=== PATIENT | female | born 1990 | race Caucasian/White ===

== ENCOUNTER → 2021-10-03 11:49 | Outpatient (BNVA) | payer OTHER, SELFPAY | PROVIDERS: PCP Obstetrics & Gynecology; Visit Provider Registered Nurse Neonatal Intensive Care | DX: M25.572 Pain in left ankle and joints of left foot (principal) | CPT/HCPCS: 73610 ==

== ENCOUNTER → 2021-10-12 12:11 | Outpatient (BNVA) | payer OTHER, SELFPAY | PROVIDERS: Visit Provider Obstetrics & Gynecology | DX: Z31.69 Encounter for other general counseling and advice on procreation (principal); Z12.4 Encounter for screening for malignant neoplasm of cervix | CPT/HCPCS: 80053; 82652; 84443; 85025; 86592; 86762; 86787; 86803; 86850; 86900; 87340; 87806; 88175 ==

== ENCOUNTER 2022-05-26 08:23 | Outpatient (CLI) | payer BC, SELFPAY ==
[2022-05-26 09:51] LABS: Estradiol 40.2 pg/mL; Follicle Stimulating Hormone 6.9 mIU/mL; Luteinizing Hormone 8.2 mIU/mL (0.5-41.7); Progesterone 0.206 ng/mL; Thyroid Stimulating Hormone 1.26 uIU/mL (0.27-4.20)
== END 2022-05-26 08:24 | disposition home or self-care (01) ==
PROVIDERS: Visit Provider Obstetrics & Gynecology
DX: Z31.7 Encounter for procreative management and counseling for gestational carrier (principal)
CPT/HCPCS: 36415; 76830; 82670; 83001; 83002; 84144; 84443; 84702

== ENCOUNTER 2022-07-04 08:39 | Outpatient (CLI) | payer BC, SELFPAY ==
[2022-07-04 10:54] LABS: Follicle Stimulating Hormone 7.2 mIU/mL; Luteinizing Hormone 7.1 mIU/mL (0.5-41.7); Progesterone 0.092 ng/mL; Thyroid Stimulating Hormone 1.37 uIU/mL (0.27-4.20)
[2022-07-04 11:42] LABS: Estradiol 60.8 pg/mL
== END 2022-07-04 08:40 | disposition home or self-care (01) ==
LOC: LAB 09:16
PROVIDERS: PCP Nurse Practitioner Family; Visit Provider Obstetrics & Gynecology Reproductive Endocrinology
DX: Z31.83 Encounter for assisted reproductive fertility procedure cycle (principal)
CPT/HCPCS: 36415; 82670; 83001; 83002; 84144; 84443; 84702

== ENCOUNTER 2022-07-21 08:01 | Outpatient (CLI) | payer BC, SELFPAY ==
[2022-07-21 09:33] LABS: Estradiol 180.9 pg/mL; Progesterone 27.32 ng/mL
== END 2022-07-21 08:02 | disposition home or self-care (01) ==
LOC: LAB 08:22
PROVIDERS: PCP Nurse Practitioner Family; Visit Provider Obstetrics & Gynecology Reproductive Endocrinology
DX: Z31.49 Encounter for other procreative investigation and testing (principal)
CPT/HCPCS: 36415; 82670; 84144

== ENCOUNTER 2022-07-26 08:20 | Outpatient (CLI) | payer BC, SELFPAY ==
[2022-07-26 09:22] LABS: Progesterone 29.35 ng/mL
== END 2022-07-26 08:21 | disposition home or self-care (01) ==
PROVIDERS: PCP Nurse Practitioner Family; Visit Provider Obstetrics & Gynecology Reproductive Endocrinology
DX: Z32.00 Encounter for pregnancy test, result unknown (principal)
CPT/HCPCS: 36415; 84144; 84702

== ENCOUNTER 2022-07-28 08:57 | Outpatient (CLI) | payer BC, SELFPAY ==
[2022-07-28 10:20] LABS: Estradiol 255.1 pg/mL; Thyroid Stimulating Hormone 0.98 uIU/mL (0.27-4.20)
== END 2022-07-28 08:58 | disposition home or self-care (01) ==
PROVIDERS: PCP Nurse Practitioner Family; Visit Provider Obstetrics & Gynecology Reproductive Endocrinology
DX: Z32.01 Encounter for pregnancy test, result positive (principal)
CPT/HCPCS: 36415; 82670; 84144; 84443; 84702

== ENCOUNTER 2022-08-08 09:17 | Outpatient (CLI) | payer BC, SELFPAY ==
--- NOTE | 2022-08-08 09:58 | US_ITS ---
WS: [id number] EARLY OBSTETRICAL ULTRASOUND (<14 WEEKS). HISTORY: W/HX OF INFERTILITY COMPARISON: None available. Single intrauterine gestational sac is identified. Cardiac activity at 116 BPM. [place]-rump length taylor sures 0.5 cm which corresponds to a gestation of 6w1d. Normal-appearing yolk sac and amnion demonstra rosalie. No subchorionic hemorrhage. No free fluid. Normal size ovaries with no mass. US/US OB <=14 wk fetus w transvag IMPRESSION: 1. Single intrauterine gestation of 6 weeks 1 day with an EDC of 04/02/2023. 2. Normal cardiac activity for age.
[2022-08-08 10:26] LABS: Estradiol 194.6 pg/mL
[2022-08-08 11:35] LABS: Progesterone > 60 ng/mL
== END 2022-08-08 09:18 | disposition home or self-care (01) ==
PROVIDERS: PCP Nurse Practitioner Family; Visit Provider Obstetrics & Gynecology Reproductive Endocrinology
DX: O09.00 Supervision of pregnancy with history of infertility, unspecified trimester (principal); Z3A.01 Less than 8 weeks gestation of pregnancy
CPT/HCPCS: 36415; 76801; 76817; 82670; 84144; 84702

== ENCOUNTER 2022-08-14 10:46 | Outpatient (CLI) | payer BC, SELFPAY ==
--- NOTE | 2022-08-14 11:12 | US_ITS ---
WS: [id number] EARLY OBSTETRICAL ULTRASOUND (<14 WEEKS). HISTORY: W/HX OF INFERTILITY COMPARISON: None available. Single intrauterine gestational sac is identified. Cardiac activity at 131 BPM. [place]-rump length taylor sures 0.9 cm which corresponds to a gestation of 6w6d. Normal-appearing yolk sac and amnion demonstra rosalie. No subchorionic hemorrhage. No free fluid. Normal size ovaries with no mass. US/US OB lmt with transvaginal IMPRESSION: 1. Single intrauterine gestation of 6 weeks 6 days with an EDC of 04/03/2023. 2. Normal heart rate.
[2022-08-14 14:17] LABS: Estradiol 343.3 pg/mL; Progesterone 9.33 ng/mL
== END 2022-08-14 10:47 | disposition home or self-care (01) ==
PROVIDERS: PCP Nurse Practitioner Family; Visit Provider Obstetrics & Gynecology Reproductive Endocrinology
DX: O09.00 Supervision of pregnancy with history of infertility, unspecified trimester (principal); Z3A.00 Weeks of gestation of pregnancy not specified
CPT/HCPCS: 36415; 76815; 76817; 82670; 84144; 84702

== ENCOUNTER 2023-01-11 11:12 | Outpatient (CLI) | payer BC, SELFPAY ==
--- NOTE | 2023-01-11 11:23 | XR_ITS ---
WS: [email or web address] EXAMINATION: XR foot RT 2V [id number] REASON FOR EXAM: R TOE PAIN COMPARISON: None available. ORDER DATE: 01/11/2023 11:30 AM TECHNIQUE: 3 views of the right foot were obtained. X-RAY FINDINGS: There are no fractures or dislocations. No focal abnormal soft tissue swelling. Joint spaces are pres erved. XR/XR foot RT 2V [id number] IMPRESSION: No fractures or dislocations of the right foot.
== END 2023-01-11 11:13 | disposition home or self-care (01) ==
PROVIDERS: PCP Nurse Practitioner Family; Visit Provider Nurse Practitioner Family
DX: M79.674 Pain in right toe(s) (principal)
CPT/HCPCS: 73620

== ENCOUNTER 2023-03-09 12:43 | Outpatient (CLI) | payer BC, SELFPAY ==
--- NOTE | 2023-03-09 12:55 | US_ITS ---
WS: [id number] BIOPHYSICAL PROFILE AND LIMITED OB. HISTORY: ANEMIA IN 3RD TRIMESTER/HIGH RISK COMPARISON: 08/14/2022 Presentation: Vertex Cervix: Closed and normal length. Placenta: Posterior and fundal. Grade: 1 HEART: FHR of 138BPM. Biophysical profile: Parameters are as follows: Breathin Movement: 2 Tone: 2 Fluid volume: 2 Amniotic fluid index: 11.2 cm. IMPRESSION: 1. Biophysical profile score: 8/8. 2. Normal amniotic fluid.
== END 2023-03-09 12:44 | disposition home or self-care (01) ==
PROVIDERS: PCP Nurse Practitioner Family; Visit Provider Family Medicine
DX: O99.013 Anemia complicating pregnancy, third trimester (principal); D64.9 Anemia, unspecified; Z3A.00 Weeks of gestation of pregnancy not specified
CPT/HCPCS: 76819

== ENCOUNTER 2023-03-16 12:14 | Outpatient (CLI) | payer BC, SELFPAY ==
--- NOTE | 2023-03-16 12:33 | US_ITS ---
WS: [id number] BIOPHYSICAL PROFILE AND LIMITED OB. HISTORY: ADEMIA IN , THIRD TRIMESTER COMPARISON: 08/08/2022,, 03/09/2023 Presentation: Vertex. Cervix: Obscured by the head. Placenta: Posterior and fundal. Grade: 1 HEART: FHR of 138BPM. measurements: BPD = 8.8 cm = 35w4d; 25% HC = 31.9 cm = 35w6d; 7% AC = 32.3 cm = 36w2d; 41% FL = 7.0 cm = 36w0d; 24% ALTAF: 9.5 centimeters. EFW: 2839g; 47% AGA by ultrasound: 36w0d CHAD by ultrasound: 04/13/2023 Measurements are internally concordant. Biophysical profile: Parameters are as follows: Breathin Movement: 2 Tone: 2 Fluid volume: 2 IMPRESSION: 1. Biophysical profile score: 8/8. 2. Single intrauterine gestation of 36w0d with an EDC of 04/13/2023. Fetus is measuring approximately 11 days smaller when compared to the first trimester ultrasound. Appropriate growth. 3. No growth asymmetry. 4. Estimated weight at the 47%.
== END 2023-03-16 12:15 | disposition home or self-care (01) ==
PROVIDERS: PCP Nurse Practitioner Family; Visit Provider Family Medicine
DX: O99.013 Anemia complicating pregnancy, third trimester (principal); O09.893 Supervision of other high risk pregnancies, third trimester; Z3A.00 Weeks of gestation of pregnancy not specified
CPT/HCPCS: 76815; 76819

== ENCOUNTER 2023-03-16 13:09 | Outpatient (CLI) | payer BC, SELFPAY ==
[2023-03-16 13:09] VITALS: BMI 24.3
[2023-03-16 13:30] VITALS: PULSE 79; RESP 17
[2023-03-16 13:32] VITALS: BP 118/74; PULSE 75
[2023-03-16 13:44] VITALS: RESP 18
[2023-03-16 13:48] VITALS: BP 120/71; PULSE 79
== END 2023-03-16 13:59 | disposition home or self-care (01) ==
LOC: OPOB 13:09 → OBGYN 13:10
PROVIDERS: PCP Nurse Practitioner Family; Visit Provider Family Medicine
DX: O26.899 Other specified pregnancy related conditions, unspecified trimester (principal); Z3A.00 Weeks of gestation of pregnancy not specified
CPT/HCPCS: 59025; 99211

== ENCOUNTER 2023-03-23 12:29 | Outpatient (CLI) | payer BC, SELFPAY ==
--- NOTE | 2023-03-23 13:10 | US_ITS ---
WS: [email or web address] BIOPHYSICAL PROFILE AMNIOTIC FLUID HISTORY: wellbeing. COMPARISON: 03/16/2023 position: Vertex. Cardiac activity: 167 bpm. Cervix: closed. Placenta: Posterior and fundal. Placenta does appear to have age since the prior exam. Only a small p ortion of the placenta has been included on each of these exams. Placenta grade: 2 Parameters are as follows: Breathin Movement: 2 Tone: 2 Fluid volume: 2 Amniotic Fluid Index: 8.6 cm; single deep vertical pocket 3.4 cm. IMPRESSION: 1. Biophysical profile score: 8/8. 2. Normal amniotic fluid. 3. Only a small portion of the placenta is identified and appears to be have aged since the most rece nt exam. Grade 2 placenta.
== END 2023-03-23 12:30 | disposition home or self-care (01) ==
LOC: RAD 12:41
PROVIDERS: PCP Nurse Practitioner Family; Visit Provider Family Medicine
DX: O99.013 Anemia complicating pregnancy, third trimester (principal); D64.9 Anemia, unspecified; O09.893 Supervision of other high risk pregnancies, third trimester; Z3A.00 Weeks of gestation of pregnancy not specified
CPT/HCPCS: 76819

== ENCOUNTER 2023-03-30 08:09 | Inpatient (IN) | payer BC, SELFPAY ==
[2023-03-30] VITALS (36 sets, daily range): BP systolic 109–132; BP diastolic 57–96; PULSE 63–115; RESP 15–20; TEMP 36.6–36.9; O2SAT 98; BMI 23.9
[2023-03-30 08:41] LABS: Basophils % 0.5 %; Eosinophils # 0.1 10^3/uL (0.0-0.8); Lymphocytes # 2.3 10^3/uL (0.8-4.8); Mean Corpuscular HGB Conc 30.9 g/dL (30-55); Mean Corpuscular Hemoglobin 24.6 pg (27-33); Mean Corpuscular Volume 79.5 fl (85-98); Mean Platelet Volume 12.3 fL (7.4-10.4); Monocytes # 0.6 10^3/uL (0.2-0.9); Neutrophils # 5.78 10^3/uL (1.8-7.7); Neutrophils % 65.2 %; Nucleated Red Blood Cells % 0 %; Platelet Count 222 10^3/cmm (157-399); Red Blood Count 4.15 10^6/uL (3.85-5.65); Red Cell Distribution Width 14.5 % (12.1-15.1); White Blood Count 8.87 10^3/uL (3.29-11.43)
--- NOTE | 2023-03-30 09:00 | PM.OBGYHP ---
Providers/Chief Complaint Admitting Physician: Scarlett May DO Primary PAPER FINAL INSPECTOR: Scarlett May DO Primary Care Provider: Juanis De Santiago Chief Complaint: Elective IOL HPI PAPER FINAL INSPECTOR History of Present Illness Catherine Medeiros is a 32 year old female at 39w0d by LMP c/w early US with PMHx anemia, migraines, allergies and past hx IUGR, PPROM presenting for elective induction of labor for a surrogate initiated with IVF. course unremarkable- she has had evaluation with MFM for genetic counseling with parents. Denies regular cramping/contractions, LOF, vaginal bleeding prior to admission. Good movement. care was good and starting in the first trimester. On Pepcid to twice daily for reflux. labs significant for rubella non-immune. Level 2 anatomy scan with MFM within normal limits. Present Details : 6 Para: 4 Labs Blood type OB HPI: O (+) positive Rubella: Non-Immune RPR: Negative GBS: Negative HBsAG: Negative Other Lab Information: HIV negative HCV ab NR GC/chlam negative Initial H/H 12.9/38.4 UCx negative 1hr GTT passed- 130 3rd trimester H/H 10.7/32.1 Review of Systems Const: Denies: fever(s) or chills Card: Denies: chest pain Resp: Denies: dyspnea GI: Denies: abdominal pain Medications/Allergies Home Medications Medication Instructions Recorded Confirmed Last Taken Type ferrous sulfate 15 mg iron (75 1 mg PO DAILY 03/30/23 03/30/23 03/27/23 History mg)/mL oral drops [id number] 1 mg 1 tab PO DAILY 03/30/23 03/30/23 03/29/23 History tablet 1 Allergies Allergy/AdvReac Type Severity Reaction Status Date / Time pumpkin Allergy ALGY-Hives Verified 03/30/23 08:53 PFSH PAPER FINAL INSPECTOR PFSH: Medical History (Updated 03/30/23 @ 13:39 by Scarlett May DO) No pertinent past medical history neghx: dm, htn, thyroid, dvt/pe PCP: Dr. May Surgical History (Updated 10/19/21 @ 10:39 by Ruba Zamora MD) History of surgery on lower extremity fatty tissue removed from left leg History of wisdom tooth extraction Family History (Updated 10/19/21 @ 10:26 by Kelsie Bob LPN) Mother Cancer Ovarian cancer Father Hyperlipidemia Denies family history of Cervical cancer Prostate cancer Diabetes Heart disease Breast cancer Hypertension Uterine cancer Thyroid disease Stroke Other Female Reproductive History: Hx Age of Menarche: 15 History History History 6 Term 4 0 Miscarriages/Ectopic 1 Living Children 4 Past Pregnancies Del. Date GA/Weeks Outcome Route Wt Inf Gender Labor Lgth Comp. Anesthesia Location 06/22/12 live - full term Vaginal Female 3 1/2 hours Third degree laceration [facility] 12/08/14 live - full term Vaginal Male 2 hours [facility] 07/24/17 live - full term Vaginal Female 3 hours [place] 06/29/20 live - full term Vaginal Female 3 1/2 hours [place] Vitals/I&O/Wt Last Vital Signs Temp 98.1 F 03/30/23 08:11 Pulse 72 03/30/23 08:39 Resp 18 03/30/23 08:30 BP 123/74 03/30/23 08:39 O2 Del Method Room Air 03/30/23 08:31 Weight last 48 hrs Weight 144 lb Physical Exam Const: COMMON NORMALS: no acute distress, healthy appearing and alert Resp: COMMON NORMALS: normal respiratory effort and clear to auscultation bilaterally Cardio: COMMON NORMALS: regular rate, regular rhythm, S1 normal heart sound present, S2 normal heart sound present and No murmurs present (Cardio) : OTHER: gravid with size appropriate for gestational age SVE 2/50/-2 on admission per RN Extremity: NARRATIVE EXTREMITY EXAM: No LE edema Data 03/30/23 08:15 Results Labs OB ([facility]): Obstetrics US Obstetrics US/Biophysical Profile Blood Type O Positive Antibody Screen Negative Hct 33.0 % (36-47) L Hgb 10.20 g/dL (11.27-16.99) L Rho(D) Type Positive Plt Count 222 10^3/cmm (157-399) Hep Bs Antigen Non-reactive (Nonreactive) Hepatitis C Antibody Non-reactive (Nonreactive) Rubella IgG Antibody 32.8 IU/mL (0.0-10.0) H RPR Nonreactive (Nonreactive) TSH 0.98 uIU/mL (0.27-4.20) VZV IgG Antibody 277.70 index Progesterone 9.33 ng/mL FSH 7.2 mIU/mL A&P Assessment and plan (1) Elective induction of labor planned: (2) Term : (3) Encounter for procreative management and counseling for person acting as gestational surrogate: (4) Anemia complicating : Plan 32yo admitted for elective induction of labor with surrogate . Bio parents present in town. Routine CBC. On low dose pitocin for induction. Continuous EFM on pitocin. Fentanyl protocol, may have epidural if desired although patient indicates she does not want an epidural. Attestations Medical Necessity Statement*: Catherine Medeiros's hospital stay will require greater than 2 midnights for routine labor and delivery and care. Coding Level of Care Code Acute Code for Chg Fwd Diagnoses Elective induction of labor planned Term Z34.90 Encounter for procreative management and counseling for person acting as gestational surrogate Z31.7 Anemia complicating O99.019
[2023-03-30] MEDS: dextrose 5%-lactated ringers 1,000 ML 125 ML IV (09:04)
[2023-03-30] MEDS: oxytocin 30 UNIT/500 ML BAG IV (09:04)
[2023-03-30] MEDS: ondansetron 2 mg/ML SDV 2 mL 4 MG IVP (14:33)
[2023-03-30] MEDS: fentaNYL 50 mcg/mL INJ 2mL IVP (15:46)
--- NOTE | 2023-03-30 16:09 | P.PCNOB_ITS ---
Delivery Note: Date of delivery: March 30, 2023 Pre-delivery diagnoses: Term Surrogate Post-delivery diagnoses: Term delivery of female Procedure: Spontaneous Vaginal Delivery Delivering Physician: Scarlett May DO Estimated blood loss (mL): 200 Pre-Delivery Course: Patient was admitted for induction of labor and started on low-dose Pitocin with initial SVE of 2/50/-2. Progressed appropriately to complete. AROM performed at 1525 with moderate amount of clear fluid. Following patient progressed quickly to complete. Of note patient with apparent small syncopal episode after patient found to be complete but prior to initiating pushing - presumed due to intense pain that resolved after contraction with noted normal vital signs during episode. Following patient easily responsive and alert prior to initiating pushing. Delivery: Patient progressed to complete. Patient placed in lithotomy position. Patient pushed with adequate effort. Head delivered in HUSSEIN position, no nuchal cord was present. Shoulders and rest of body delivered without difficulty with no anesthesia. Body cord noted wrapped around left leg and foot. Mouth and nares bulb suctioned. Cord clamped and cut after approximately 2-minute delay. placed on maternal abdomen. Placenta spontaneously delivered and intact. Pitocin started. Fundus was noted to be firm with massage. The vagina and cervix were inspected and small first-degree laceration at posterior introitus was noted and found to be hemostatic not requiring repair. Noted to have intermittent small trickle bleeding. Tranexamic acid was given and with fundal massage fundus was again noted to be firm. Female born at 1538 on 03/30/2021 with 9/9 weighing 3010g and measuring 19.75 in length Placenta noted to be intact with centrally inserted umbilical cord and three- vessel cord. Complications: Maternal none none History History History 6 Term 5 0 Miscarriages/Ectopic 1 Living Children 5 Past Pregnancies Del. Date GA/Weeks Outcome Route Wt Inf Gender Labor Lgth Comp. Anesth esia Location 06/22/12 live - full term Vaginal Female 3 1/2 ho urs Third degree laceration [facility] 12/08/14 live - full term Vaginal Male 2 hours [facility] 07/24/17 live - full term Vaginal Female 3 hours [place] 06/29/20 live - full term Vaginal Female 3 1/2 hours [place] Coding Level of Care Code Acute Code for Chg Fwd Diagnoses
[2023-03-30] MEDS: ibuprofen 800 mg tablet PO (23:09)
[2023-03-31 04:00] VITALS: BP 115/72; PULSE 76; RESP 14; TEMP 36.7; O2SAT 98
[2023-03-31 04:25] LABS: Hematocrit 26.7 % (36-47); Mean Corpuscular HGB Conc 31.1 g/dL (30-55); Mean Corpuscular Hemoglobin 24.9 pg (27-33); Mean Corpuscular Volume 80.2 fl (85-98); Mean Platelet Volume 11.9 fL (7.4-10.4); Platelet Count 170 10^3/cmm (157-399); Red Blood Count 3.33 10^6/uL (3.85-5.65); Red Cell Distribution Width 14.4 % (12.1-15.1); White Blood Count 11.88 10^3/uL (3.29-11.43)
[2023-03-31] MEDS: prenatal vitamin Capsule 1 CAP PO (08:38)
[2023-03-31] MEDS: ibuprofen 800 mg tablet PO (08:38)
[2023-03-31] MEDS: docusate sodium 100 mg Capsule PO (08:38)
[2023-03-31] MEDS: ferrous sulfate EC 325 mg Tablet PO (08:40)
[2023-03-31 08:51] VITALS: BP 121/70; PULSE 80; RESP 15
--- NOTE | 2023-03-31 08:57 | P.DS_ITS ---
Discharge Providers MANAGER UNIVERSITY Date of Admission: 03/30/23 08:09 Date of Discharge: 03/31/23 Attending Provider at Admission: Scarlett May DO Attending Provider at Discharge: Scarlett May DO Primary Care Provider: Juanis De Santiago Diagnoses at Discharge Discharge Diagnosis (1) Spontaneous vaginal delivery: Status: Acute (2) Anemia: Status: Acute Reason for Visit Reason for Visit: Elective IOL Hospital Course Hospital Course Pre-Delivery Course:?? Patient was admitted for induction of labor and started on low-dose Pitocin with initial SVE of 2/50/-2.? Progressed appropriately to complete.? AROM performed at 1525 with moderate amount of clear fluid.? Following patient progressed quickly to complete.? Of note patient with apparent small syncopal episode after patient found to be complete but prior to initiating pushing - presumed due to intense pain that resolved after contraction with noted normal vital signs during episode.? Following patient easily responsive and alert prior to initiating pushing. Delivery:?? Patient progressed to complete. Patient placed in lithotomy position. Patient pushed with adequate effort.? Head delivered in HUSSEIN position, no nuchal cord was present. Shoulders and rest of body delivered without difficulty with no anesthesia. Body cord noted wrapped around left leg and foot.? Mouth and nares bulb suctioned. Cord clamped and cut after approximately 2-minute delay. placed on maternal abdomen. Placenta spontaneously delivered and intact. Pitocin started. Fundus was noted to be firm with massage. The vagina and cervix were inspected and small first-degree laceration at posterior introitus was noted and found to be hemostatic not requiring repair.? Noted to have intermittent small trickle bleeding.? Tranexamic acid was given and with fundal massage fundus was again noted to be firm. Female born at 1538 on 03/30/2021 with 9/9 weighing 3010g and measuring 19.75 in length Placenta noted to be intact with centrally inserted umbilical cord and three- vessel cord. Complications: Maternal none ? none course: Patient underwent on 03/31/23. course was uncomplicated. Following delivery patient ambulated well, tolerated a normal diet without nausea or vomiting. Pain was well controlled on PO medications, pumping to feed due to surrogate , no leg/calf pain, no calf/leg swelling, normal urination. Vaginal bleeding decreasing and thin lochia. labs significant for Hgb 8.3 from 10.2 on admission. Follow-up plann ed for 2 and 6 weeks . Warning signs for endometritis, pre-eclampsia, DVT/PE, mastitis were reviewed, discussed additional warning signs including increased vaginal bleeding, worsening abdominal pain. Pelvic rest and activity precautions reviewed as well. She is discharged on 03/31/23 in stable condition. Information Peripartum Data: Infant Delivery Method: Vaginal Physical Exam Const: COMMON NORMALS: no acute distress, healthy appearing and alert Resp: COMMON NORMALS: normal respiratory effort and clear to auscultation bilaterally AUSCULTATION: clear to auscultation bilaterally Cardio: COMMON NORMALS: regular rate, regular rhythm, S1 normal heart sound present, S2 normal heart sound present and No murmurs present (Cardio) RATE: regular rate RHYTHM: regular rhythm HEART SOUNDS: S1 normal heart sound present and S2 normal heart sound present : OTHER: fundus firm and below the umbilicus Extremity: NARRATIVE EXTREMITY EXAM: No LE edema Neuro: SENSORIUM/ORIENTATION: Yes alert History History History 6 Term 5 0 Miscarriages/Ectopic 1 Living Children 5 Past Pregnancies Del. Date GA/Weeks Outcome Route Wt Inf Gender Labor Lgth Comp. Anesth esia Location 06/22/12 live - full term Vaginal Female 3 1/2 ho urs Third degree laceration [facility] 12/08/14 live - full term Vaginal Male 2 hours [facility] 07/24/17 live - full term Vaginal Female 3 hours [place] 06/29/20 live - full term Vaginal Female 3 1/2 hours [place] Discharge Data Studies Completed and Pending Laboratory Results WBC 11.88 10^3/uL (3.29-11.43) H 03/31/23 04:05 RBC 3.33 10^6/uL (3.85-5.65) L 03/31/23 04:05 Hgb 8.30 g/dL (11.27-16.99) L 03/31/23 04:05 Hct 26.7 % (36-47) L 03/31/23 04:05 MCV 80.2 fl (85-98) L 03/31/23 04:05 MCH 24.9 pg (27-33) L 03/31/23 04:05 MCHC 31.1 g/dL (30-55) 03/31/23 04:05 RDW 14.4 % (12.1-15.1) 03/31/23 04:05 Plt Count 170 10^3/cmm (157-399) 03/31/23 04:05 MPV 11.9 fL (7.4-10.4) H 03/31/23 04:05 Neut % (Auto) 65.2 % 03/30/23 08:15 Lymph % (Auto) 26.0 % 03/30/23 08:15 Green % (Auto) 7.0 % 03/30/23 08:15 Eos % (Auto) 1.0 % 03/30/23 08:15 Baso % (Auto) 0.5 % 03/30/23 08:15 Neut # (Auto) 5.78 10^3/uL (1.8-7.7) 03/30/23 08:15 Lymph # (Auto) 2.3 10^3/uL (0.8-4.8) 03/30/23 08:15 Green # (Auto) 0.6 10^3/uL (0.2-0.9) 03/30/23 08:15 Eos # (Auto) 0.1 10^3/uL (0.0-0.8) 03/30/23 08:15 Baso # (Auto) 0.0 10^3/uL (0.0-0.1) 03/30/23 08:15 Nucleated RBC % (auto) 0 % 03/30/23 08:15 Nucleated RBCs # 0.0 /100WBC 03/30/23 08:15 Blood Type O Positive 03/30/23 08:15 Rho(D) Type Positive 03/30/23 08:15 Antibody Screen Negative 03/30/23 08:15 Vitals Last Vital Signs Temp 98.1 F 03/31/23 04:00 Pulse 80 03/31/23 08:51 Resp 15 03/31/23 08:51 BP 121/70 03/31/23 08:51 Pulse Ox 98 03/31/23 04:00 O2 Del Method Room Air 03/31/23 04:00 Results Labs OB ([facility]): Obstetrics US 08/14/22 Obstetrics US/Biophysical Profile Blood Type O Positive 03/30/23 Antibody Screen Negative 03/30/23 Hct 26.7 % (36-47) L 03/31/23 Hgb 8.30 g/dL (11.27-16.99) L 03/31/23 Rho(D) Type Positive 03/30/23 Plt Count 170 10^3/cmm (157-399) 03/31/23 Hep Bs Antigen Non-reactive (Nonreactive) 10/12/21 Hepatitis C Antibody Non-reactive (Nonreactive) 10/12/21 Rubella IgG Antibody 32.8 IU/mL (0.0-10.0) H 10/12/21 RPR Nonreactive (Nonreactive) 10/12/21 TSH 0.98 uIU/mL (0.27-4.20) 07/28/22 VZV IgG Antibody 277.70 index 10/12/21 Progesterone 9.33 ng/mL 08/14/22 FSH 7.2 mIU/mL 07/04/22 Total Estradiol 343.3 pg/mL 08/14/22 Discharge Plan Discharge Patient Disposition: Home Condition: Stable Prescriptions: New ibuprofen 800 mg Tablet 800 mg PO TID Qty: 90 0RF ferrous sulfate 325 mg (65 mg iron) Tablet,Delayed Release (Dr/Ec) 325 mg PO DAILY Qty: 90 0RF Continued 1 mg Tablet 1 tab PO DAILY Discontinued ferrous sulfate 15 mg iron (75 mg)/mL Drops 1 mg PO DAILY Discharge Orders: Discharge Order (Routine); Ordered 03/31/23 Ordered By: Scarlett May Discharge Diet: Regular Discharge Activity: Increase activity as tolerated Patient Instructions: Opioid Safety Activity Restrictions/Additional Instructions: Pevic rest for 6 weeks. Follow-up with Dr. May at 2 and 6 weeks . Discharge Attestations MANAGER UNIVERSITY Time Spent in Discharge Care*: less than 30 min Coding Level of Care Code Acute Code for Chg Fwd Diagnoses Spontaneous vaginal delivery O80 Anemia D64.9
[2023-03-31 10:55] VITALS: BP 118/75; PULSE 74; RESP 16; TEMP 36.9
[2023-03-31 11:51] VITALS: BP 118/75; PULSE 74; RESP 16; TEMP 36.9
== END 2023-03-31 11:52 | disposition home or self-care (01) | DRG 807 ==
LOC: OPOB 17:15 → OBGYN 17:16
PROVIDERS: Admitting Provider Family Medicine; PCP Nurse Practitioner Family; Visit Provider Family Medicine
DX: O99.02 Anemia complicating childbirth (principal); Z37.0 Single live birth; Z3A.39 39 weeks gestation of pregnancy; Z31.7 Encounter for procreative management and counseling for gestational carrier; D64.9 Anemia, unspecified
CPT/HCPCS: 36415; 59025; 59409; 85025; 85027; 86850; 86900; 96374; J2405; J2590; J3010; J7121

== ENCOUNTER 2023-04-02 23:13 | Emergency (ER) | payer BC, SELFPAY ==
[2023-04-02 23:24] VITALS: BP 134/80; PULSE 84; RESP 16; TEMP 37.1; O2SAT 99; BMI 22.4
--- NOTE | 2023-04-02 23:39 | ED_ITS ---
HPI - Abdominal Pain General: Chief Complaint: Abdominal Pain Stated Complaint: right lower pain, post delivery 3days ago Time Seen by Provider: 04/02/23 23:36 Source: patient Mode of arrival: ambulatory History of Present Illness: 32-year-old female who had a vaginal delivery 3 days ago states that today she been having some episodic right lower quadrant pain that worsened tonight states cramping type pain rates the pain a 6 out of 10 states she has had some bleeding since delivery but no heavy amounts. Associated Symptoms: Denies chills, diarrhea, dysuria, fever(s), nausea and vomiting Review of Systems Const: Denies: fever(s), chills, body aches or change in appetite ENMT: Denies: throat pain or dental pain Card: Denies: chest pain Resp: Denies: dyspnea GI: Reports: abdominal pain; Denies: nausea, vomiting or diarrhea : Denies: dysuria Musc: Denies: neck pain or back pain Skin/Breast: Denies: rash Neuro: Denies: headache(s) PFSH ED PFSH: Medical History No pertinent past medical history neghx: dm, htn, thyroid, dvt/pe PCP: Dr. May Surgical History History of surgery on lower extremity fatty tissue removed from left leg History of wisdom tooth extraction Family History (Updated 10/19/21 @ 10:26 by Kelsie Bob LPN) Mother Cancer Ovarian cancer Father Hyperlipidemia Denies family history of Cervical cancer Prostate cancer Diabetes Heart disease Breast cancer Hypertension Uterine cancer Thyroid disease Stroke Physical Exam Const: COMMON NORMALS: no acute distress, patient oriented x3 and healthy appearing HENMT: COMMON NORMALS: normocephalic and atraumatic HEAD & SCALP: normocephalic and atraumatic Neck/C-Spine: COMMON NORMALS: full ROM and supple Chest: COMMONS NORMALS: normal inspection of the chest Resp: COMMON NORMALS: normal respiratory effort Cardio: COMMON NORMALS: regular rate RATE: regular rate GI: COMMON NORMALS: Normal to inspection, nondistended, normoactive bowel sounds present, Soft to palpation and no masses PALPATION: Yes Soft to palpation and Yes Tenderness to palpation present (GI) Details: RLQ Extremity: COMMON NORMALS: normal to inspection and full ROM Neuro: COMMON NORMALS: patient oriented x3, moves all extremities and no focal motor deficits Psych: COMMON NORMALS: mental status grossly normal, Normal thought process present and cooperative THOUGHT PROCESS: Normal thought process present Skin: COMMON NORMALS: no rashes or lesions noted and no wounds GENERAL SKIN EXAM: no rashes or lesions noted Course Vital Signs: Vital signs: Vital Signs Temperature 98.7 F 04/02/23 23:24 Pulse Rate 71 04/03/23 00:54 Respiratory Rate 16 04/03/23 00:54 Blood Pressure 126/82 04/03/23 00:54 Pulse Oximetry 98 04/03/23 00:54 Oxygen Delivery Me thod Room Air 04/02/23 23:24 MDM - Abdominal Pain Medical Decision Making Patient presents for abdominal pain is likely post pain her CT here is normal no appendicitis blood work and urinalysis normal as well she feels improved here she is stable for discharge she is to follow-up with PCP and return if worsening. Medical Records I reviewed the patient's medical records. Lab Data I reviewed the patient's lab results. 04/02/23 23:40 04/02/23 23:40 Labs/Radiology: Radiology Impressions Abdomen/Pelvis CT 04/02/23 23:39 IMPRESSION: 1. No acute abdominal or pelvic findings. 2. Enlarged uterus indicative of recent . 3. Normal appendix and bowel. Laboratory Results WBC 10.52 10^3/uL (3.29-11.43) 04/02/23 23:40 RBC 3.65 10^6/uL (3.85-5.65) L 04/02/23 23:40 Hgb 8.90 g/dL (11.27-16.99) L 04/02/23 23:40 Hct 29.5 % (36-47) L 04/02/23 23:40 MCV 80.8 fl (85-98) L 04/02/23 23:40 MCH 24.4 pg (27-33) L 04/02/23 23:40 MCHC 30.2 g/dL (30-55) 04/02/23 23:40 RDW 14.6 % (12.1-15.1) 04/02/23 23:40 Plt Count 243 10^3/cmm (157-399) 04/02/23 23:40 MPV 11.1 fL (7.4-10.4) H 04/02/23 23:40 Neut % (Auto) 61.4 % 04/02/23 23:40 Lymph % (Auto) 29.1 % 04/02/23 23:40 [place] % (Auto) 6.2 % 04/02/23 23:40 Eos % (Auto) 2.8 % 04/02/23 23:40 Baso % (Auto) 0.3 % 04/02/23 23:40 Neut # (Auto) 6.47 10^3/uL (1.8-7.7) 04/02/23 23:40 Lymph # (Auto) 3.1 10^3/uL (0.8-4.8) 04/02/23 23:40 [place] # (Auto) 0.7 10^3/uL (0.2-0.9) 04/02/23 23:40 Eos # (Auto) 0.3 10^3/uL (0.0-0.8) 04/02/23 23:40 Baso # (Auto) 0.0 10^3/uL (0.0-0.1) 04/02/23 23:40 Nucleated RBC % (auto) 0 % 04/02/23 23:40 Nucleated RBCs # 0.0 /100WBC 04/02/23 23:40 Sodium 138 mmol/L (136-145) 04/02/23 23:40 Potassium 3.8 mmol/L (3.5-5.1) 04/02/23 23:40 Chloride 104 mmol/L (98-107) 04/02/23 23:40 Carbon Dioxide 24 mmol/L (22-29) 04/02/23 23:40 Anion Gap 13.8 (5-19) 04/02/23 23:40 BUN 7 mg/dL (6-20) 04/02/23 23:40 Creatinine 0.7 mg/dL (0.5-0.9) 04/02/23 23:40 GFR Calculation 98.3 mL/min (90-130) 04/02/23 23:40 Glucose 147 mg/dL (65-115) H 04/02/23 23:40 Calculated Osmolality 287 mOsm/kg (285-295) 04/02/23 23:40 Calcium 8.6 mg/dL (8.5-10.5) 04/02/23 23:40 Total Bilirubin 0.2 mg/dL (0.15-1.2) 04/02/23 23:40 AST 26 U/L (0-32) 04/02/23 23:40 ALT 12 U/L (0-33) 04/02/23 23:40 Alkaline Phosphatase 161 U/L (35-105) H 04/02/23 23:40 Total Protein 6.3 g/dL (6.6-8.7) L 04/02/23 23:40 Albumin 3.3 g/dL (3.5-5.2) L 04/02/23 23:40 Globulin 3.0 g/dL (1.3-4.6) 04/02/23 23:40 Lipase 23 U/L (13-60) 04/02/23 23:40 Urine Color Colorless (Yellow) 04/02/23 23:54 Urine Appearance Clear (CLEAR) 04/02/23 23:54 Urine pH 7 (5-7) 04/02/23 23:54 Ur Specific [place] 1.005 (1.005-1.030) 04/02/23 23:54 Urine Protein Neg (Negative) 04/02/23 23:54 Urine Glucose (UA) Norm (Normal) 04/02/23 23:54 Urine Ketones Negative (Negative) 04/02/23 23:54 Urine Blood 3+ (Negative) H 04/02/23 23:54 Urine Nitrate Negative (Negative) 04/02/23 23:54 Urine Bilirubin Neg (Negative) 04/02/23 23:54 Urine Urobilinogen Neg mg/dL (Negative) 04/02/23 23:54 Ur Leukocyte Esterase Negative (Negative) 04/02/23 23:54 Urine RBC 5-10 /hpf (0-2) H 04/02/23 23:54 Urine WBC 0-4 /hpf (0-5) H 04/02/23 23:54 Ur Squamous Epith Cells 0-4 /hpf (0-5) H 04/02/23 23:54 Amorphous Sediment Not Reportable 04/02/23 23:54 Urine Bacteria Trace /hpf (NONE) 04/02/23 23:54 All radiology interpretation(s) finalized by discharge Discharge Plan Discharge Patient Disposition: Home Clinical Impression: Abdominal pain Condition: Stable Prescriptions: New hydrocodone-acetaminophen 5-325 mg tablet 1 tab PO Q6H PRN (Reason: pain) Qty: 14 0RF ondansetron 4 mg tablet,disintegrating 4 mg PO Q6H PRN (Reason: nausea and vomiting) Qty: 14 0RF No Action [id number] 1 mg Tablet 1 tab PO DAILY ibuprofen 800 mg Tablet 800 mg PO TID Qty: 90 0RF ferrous sulfate 325 mg (65 mg iron) Tablet,Delayed Release (Dr/Ec) 325 mg PO DAILY Qty: 90 0RF Discharge Orders: Discharge ED (Routine); Ordered 04/03/23 Ordered By: Gisella Cohn Referrals: Juanis De Santiago FNP [Primary Care Provider] - 1-3 days Discharge Diet: Advance as tolerated Discharge Activity: Resume usual activity Patient Instructions: Abdominal Pain (ED) Coding Level of Care Code ED Associate Director Regulatory Affairs for Carmenza Carrion
--- NOTE | 2023-04-02 23:39 | CTR_ITS ---
PROCEDURE INFORMATION: Exam: CT Abdomen And Pelvis With Contrast Exam date and time: 04/02/2023 11:59 PM Age: 32 years old Clinical indication: Abdominal pain; Localized; Left lower quadrant (llq); Patient HX: 3 days post delivery, PT states sudden onset of rlq pain that comes in severe waves; Additional info: Abd pain TECHNIQUE: Imaging protocol: Computed tomography of the abdomen and pelvis with contrast. Radiation optimization: All CT scans at this facility use at least one of these dose optimization techniques: automated exposure control; mA and/or kV adjustment per patient size (includes targeted exams where dose is matched to clinical indication); or iterative reconstruction. Contrast material: OMNI 350; Contrast volume: 100 ml; Contrast route: INTRAVENOUS (IV); REPORTING DATA: Count of CT and Cardiac NM exams in prior 12 months: This patient has received 0 known CTs and 0 known cardiac nuclear medicine studies in the 12 months prior to the current study. COMPARISON: US OB BPP wo NST [id number] 03/23/2023 1:40 PM RADIATION DOSE METRICS: Total DLP (mGy-cm): 378.11 FINDINGS: Lungs: The lung bases are clear. Incidental calcified granulomas in both lower lobes. Liver: Overall liver size and enhancement is normal. Gallbladder and bile ducts: Normal. No calcified stones. No ductal dilation. Pancreas: Normal. No ductal dilation. Spleen: Normal. No splenomegaly. Adrenal glands: Normal. No mass. Kidneys and ureters: Normal. No hydronephrosis. Stomach and bowel: Unremarkable. No obstruction. No mucosal thickening. Appendix: No evidence of appendicitis. Intraperitoneal space: Unremarkable. No free air. No significant fluid collection. Vasculature: Unremarkable. No abdominal aortic aneurysm. Lymph nodes: Unremarkable. No enlarged lymph nodes. Urinary bladder: Unremarkable as visualized. Reproductive: The ovaries are not clearly visualized. Bones/joints: Unremarkable. No acute fracture. Soft tissues: Unremarkable. Other findings: The uterus is enlarged up to 18 cm and with an enhancement pattern suggesting recent . No abnormal fluid collection. No abscess. CT/CT abdomen pelvis w con* [id number] IMPRESSION: 1. No acute abdominal or pelvic findings. 2. Enlarged uterus indicative of recent . 3. Normal appendix and bowel.
[2023-04-02 23:46] LABS: Basophils % 0.3 %; Eosinophils # 0.3 10^3/uL (0.0-0.8); Eosinophils % 2.8 %; Hematocrit 29.5 % (36-47); Lymphocytes # 3.1 10^3/uL (0.8-4.8); Lymphocytes % 29.1 %; Mean Corpuscular HGB Conc 30.2 g/dL (30-55); Mean Corpuscular Hemoglobin 24.4 pg (27-33); Mean Corpuscular Volume 80.8 fl (85-98); Mean Platelet Volume 11.1 fL (7.4-10.4); Monocytes # 0.7 10^3/uL (0.2-0.9); Monocytes % 6.2 %; Neutrophils # 6.47 10^3/uL (1.8-7.7); Neutrophils % 61.4 %; Nucleated Red Blood Cells % 0 %; Platelet Count 243 10^3/cmm (157-399); Red Blood Count 3.65 10^6/uL (3.85-5.65); Red Cell Distribution Width 14.6 % (12.1-15.1); White Blood Count 10.52 10^3/uL (3.29-11.43)
[2023-04-02] MEDS: sodium chloride 0.9% 1,000 ML 999 ML IV (23:51)
[2023-04-03 00:07] LABS: Alanine Aminotransferase 12 U/L (0-33); Albumin Level 3.3 g/dL (3.5-5.2); Alkaline Phosphatase 161 U/L (35-105); Anion Gap 13.8 (5-19); Aspartate Amino Transferase 26 U/L (0-32); Blood Urea Nitrogen 7 mg/dL (6-20); Calcium 8.6 mg/dL (8.5-10.5); Carbon Dioxide 24 mmol/L (22-29); Chloride 104 mmol/L (98-107); Glomerular Filtration Rate 98.3 mL/min (90-130); Glucose 147 mg/dL (65-115); Lipase 23 U/L (13-60); Osmolality Calculated 287 mOsm/kg (285-295); Potassium 3.8 mmol/L (3.5-5.1); Sodium 138 mmol/L (136-145); Total Bilirubin 0.2 mg/dL (0.15-1.2); Total Protein 6.3 g/dL (6.6-8.7)
[2023-04-03 00:09] LABS: Add Urine Microscopic? YES; Bilirubin Urine Neg (Negative); Blood Urine 3+ (Negative); Glucose Urine UA Norm (Normal); Ketones Urine Negative (Negative); Leukocyte Esterase Urine Negative (Negative); Nitrate Urine Negative (Negative); Protein Urine Neg (Negative); Specific Gravity, Urine 1.005 (1.005-1.030); Urine Appearance Clear (CLEAR); Urine Color Colorless (Yellow); Urobilinogen Urine Neg (Negative); pH Urine 7 (5-7)
[2023-04-03] MEDS: iohexol 350 mg/mL 500 mL Btl (per mL) IV (00:09)
[2023-04-03 00:10] LABS: Add Urine Culture? No; Bacteria Urine TRACE /hpf; Squamous Epithelial Cell Urine 0-4 /hpf (0-5); WBC Urine 0-4 /hpf (0-5)
[2023-04-03 00:54] VITALS: BP 126/82; PULSE 71; RESP 16; O2SAT 98
[2023-04-03 01:06] VITALS: BP 126/82; PULSE 71; RESP 16; TEMP 37.1; O2SAT 98
== END 2023-04-03 01:09 | disposition home or self-care (01) ==
PROVIDERS: Emergency Provider Emergency Medicine; PCP Nurse Practitioner Family
DX: R10.31 Right lower quadrant pain (principal)
CPT/HCPCS: 36415; 74177; 80053; 81001; 81003; 83690; 85025; 96360; 99285; J7030; Q9967

== ENCOUNTER 2023-05-22 07:53 | Outpatient (CLI) | payer BC, SELFPAY ==
--- NOTE | 2023-05-22 08:05 | US_ITS ---
WS: [id number] US pelv w/transvag [id number] HISTORY: ABNORMAL UTERINE AND VAGINAL BLEEDING COMPARISON: 03/26/2022 Uterus: 7.4 cm x 6.5 cm x 5.1 cm. Normal size retroverted uterus. No fibroid or mass identified. Endometrium: 0.8 cm. Normal endometrium. There is a tiny amount of fluid in the very distal endometri al cavity. No increased vascularity. Right ovary: 3.4 cm x 2.6 cm x 2.8 cm. Normal size and vascularity, no cystic or solid masses. Multip le small follicles. Left ovary: 3.8 cm x 1.2 cm x 2.8 cm. Normal size and vascularity, no cystic or solid masses. Multipl e small follicles. No free fluid in the cul-de-sac. IMPRESSION: 1. Normal endometrium. 2. No free fluid. 3. Normal ovaries.
== END 2023-05-22 07:54 | disposition home or self-care (01) ==
LOC: RAD 07:54
PROVIDERS: PCP Nurse Practitioner Family; Visit Provider Family Medicine
DX: N93.9 Abnormal uterine and vaginal bleeding, unspecified (principal)
CPT/HCPCS: 76830; 76856

== ENCOUNTER 2024-03-14 12:40 | Outpatient (CLI) | payer OTHER, SELFPAY ==
--- NOTE | 2024-03-14 12:45 | USCV_ITS ---
Catherine Medeiros Age: 33 Gender: F : 1990 Exam Date: 03/14/2024 12:57 Ordering Phys: Tamara Nash Technologist: JUANA [place]am [place] [facility] [place] Indication: pain HISTORY: Lower extremity pain. PROCEDURES: Venous duplex imaging was performed in only the right lower extremity. The following venous structures were evaluated: common femoral vein, profunda vein, proximal portion of the greater saphenous vein, superficial femoral vein, and the popliteal vein. In addition, the posterior tibial and peroneal trunk were evaluated. Serial compression, augmentation maneuvers, and spectral Doppler flow evaluation were performed. FINDINGS: No evidence of DVT seen in any vessel visualized at this time. CONCLUSIONS No evidence of right lower extremity DVT. Srinivasan Espino MD (Electronically Signed) Final Date: 14 March 2024 15:12 S
== END 2024-03-14 12:41 | disposition home or self-care (01) ==
LOC: RAD 12:42
PROVIDERS: PCP Nurse Practitioner Family; Visit Provider Nurse Practitioner Family
DX: M79.661 Pain in right lower leg (principal)
CPT/HCPCS: 93971